=== PATIENT | male | born 1970 | race Asian ===

== ENCOUNTER 2022-04-14 17:39 | Emergency (ER) | payer MEDICARE, OTHER ==
[~2022-04-14] VITALS: Ht 160 cm; Wt 61.4 kg
[2022-04-14 22:25] VITALS: BP 143/79
== END 2022-04-14 22:31 | disposition home or self-care (01) ==
LOC: EMS 17:40
DX: M25.571 Pain in right ankle and joints of right foot (principal); M25.561 Pain in right knee; F17.210 Nicotine dependence, cigarettes, uncomplicated
CPT/HCPCS: 99284; 73562-TC; 73610-TC; Z7502